=== PATIENT | male | born 1955 | race Caucasian/White ===

== ENCOUNTER 2025-03-08 14:52 | Emergency (ER) | payer OTHER, MEDICARE, SELFPAY ==
[2025-03-08 15:18] VITALS: BP 158/88
[2025-03-08] MEDS: ADACEL 0.5 ML IM (17:48)
--- NOTE | 2025-03-08 19:21 | ED.GENMED ---
History of Present Illness
General
Chief Complaint: Head Injury
Source: patient
Exam Limitations: none
Time Seen by Provider: 03/08/25 16:29
Nursing documentation reviewed up to this point in time: agreed with
History of Present Illness
History of Present Illness:
Patient is a 69-year-old male with history of hypertension, hyperlipidemia, HIV who presents to the emergency department for evaluation of head injury. Patient states he was 'chopping ice' around 3:30 PM today when he slipped and fell striking the
back of his head on a large rock. He denies any loss of consciousness. Patient noticed significant bleeding from his head immediately following fall. He reports very mild headache, mainly localized around area of laceration on posterior scalp.
He denies any nausea or episodes of vomiting since fall. No changes in vision, dizziness, or difficulties ambulating. No neck pain, numbness/tingling in lower extremities, or weakness.
Patient is not on any oral anticoagulation. He is unsure of his last Tdap vaccine.
Review of Systems
Review of Systems
Allergies reviewed?: Yes
All Other Systems: ROS reviewed and negative except as documented in HPI and ROS
Phy Exam
Physical Exam
Physical Exam:
Vitals: Hypertensive, otherwise vital signs stable. Afebrile
General: Patient appears in no distress.
Skin: Approximately 3 cm curved laceration to posterior scalp with surrounding hematoma
Head: Normocephalic, laceration to posterior scalp as above
Eyes: Sclera nonicteric. Pupils equal round and reactive to light bilaterally. EOMs intact. No nystagmus.
Throat: Protecting airway
Neck: Normal ROM, no cervical spine tenderness, no meningismus
Cardiac: Regular rate and rhythm, no murmurs.
Pulm: Normal respiratory effort. Lungs clear bilaterally
Abdomen: No abdominal tenderness.
Back: No midline spinal tenderness.
Extremities: Bilateral upper and lower extremities atraumatic and nontender full range of motion. Strength 5/
Neuro: AAOx3. CN II-XII grossly intact. No focal neurologic deficits.
Psychiatric: Normal affect.
Course
Orders/Labs/Results
Orders:
Orders
03/08/25 15:24
Cervical Spine wo Contrast CT [CT Cervical Spine W/o Iv Contr] Urgent
Comment:
Reason For Exam: head injury
Head wo Contrast CT [CT Head W/o Iv Contrast] Urgent
Comment:
Reason For Exam: head injury
03/08/25 17:32
Tetanus/Diphth/Acelpertussis [Adacel] 0.5 ml IM .ONCE ONE
Vital Signs
Initial and Last Documented VS:
Initial Vital Signs
Temp Pulse Resp BP Pulse Ox
98.4 F 75 20 158/88 97
03/08/25 15:18 03/08/25 15:18 03/08/25 15:18 03/08/25 15:18 03/08/25 15:18
Last Documented Vital Signs
Temp Pulse Resp BP Pulse Ox
98.4 F 75 20 158/88 97
03/08/25 15:18 03/08/25 15:18 03/08/25 15:18 03/08/25 15:18 03/08/25 19:21
Procedures
Laceration Closure
Posterior Scalp:
Status of Wound: clean
Size of Wound in cm: 3
Description of Wound Edges: sharp
Preparation: cleaned with saline
Anesthesia: 1% Lidocaine with epi
Revision/Debridement: routine- no revision
Wound exploration: explored to base- no FB
Type of Closure: single layer closure
Skin Closure Material: skin ash (4)
MDM/Problems Addressed
Differential Diagnosis Includes:
Not limited to: Laceration, concussion, hematoma, intracranial bleed, etc.
MDM/Problems Addressed:
69-year-old male with laceration of posterior scalp after slip and fall on ice. No LOC. No significant headache, neck pain, or pain in extremities. Vitals stable. On exam, patient appears well and in distress. He does have am approximately 2cm
curved laceration of posterior scalp. No evidence of cervical spine injury. He is alert and oriented without focal deficits.
Prior to my evaluation � CT head/cervical spine obtained with no evidence of intracranial bleeding or fracture.�
Verbal consent obtained by patient. Laceration thoroughly irrigated with normal saline, closed with 4 skin ash. Hemeostasis obtained.
Tdap updated.
Patient tolerated procedure well and appears very well. Feel stable for discharge with supportive care instructions and close outpatient follow-up. Discussed wound care instructions and staple removal in 5-7 days. Return precautions discussed.
Chronic conditions affecting care:
Hypertension, hyperlipidemia
Acute Exacerbation and/or Progression of Chronic Illness:
Acutely hypertensive
*Radiology
Radiology exam reviewed: radiology read reviewed
*Pulse Oximetry
SaO2: 97
Oxygen Mode of Delivery: Room air
Patient hypoxic: no
*EKG
Interpreted by ED Provider?: NA
*Cigarette Packer Interpretation
Rate: Cigarette Packer- N/A
*Critical Care Note
Total Time (30-74mins, 75-104mins- exclusive of procedures): Not Applicable
ED Attending Note
-
Portions of this chart may have been created with voice recognition software.� Occasional wrong word or��sound alike� substitutions may have occurred due to the inherent limitations of voice recognition software.
Discharge Plan
Departure
Patient Disposition: Home (Routine Discharge)
Date of Disposition: 03/08/25
Time of Disposition: 17:35
Patient with high blood pressure during this ER visit?: Yes
Condition: Good
Discharge Problem:
Fall, Laceration of scalp
Instructions: Head Injury in Adults (DC), Laceration Repair With [place] (DC), BLOOD PRESSURE
Referrals:
Deedee Carnye MD [Family Provider, [facility]] - Follow up in 5-7 days
Activity Restrictions/Additional Instructions:
RETURN TO THE EMERGENCY DEPARTMENT WITH ANY SEVERE HEADACHE OR NECK PAIN, INTRACTABLE VOMITING, VISUAL CHANGES, CHANGES IN MENTAL STATUS, SIGNS OF INFECTION FROM WOUND, OR ANY OTHER CONCERNS
- The imaging of your head and cervical spine showed no evidence of fracture or intracranial bleeding. The laceration of your scalp was closed with 4 ash. Please have these removed in 5-7 days with your primary care provider, urgent care, or
emergency department.
- Keep wound clean and dry. Wash gently with soap and water. Monitor closely for signs of infection.
- You can take Tylenol and/or Motrin as needed for headache or pain.
- Follow-up with primary care in 5 to 7 days for repeat evaluation and staple removal.
Monitor your symptoms closely and return to the emergency department with any acute worsening/new symptoms or any other concerns
Interventions
Interventions:
*Neglect/Abuse Screening Last Done: 03/08/25 15:18
*Risk Screen - Suicide (C-SSRS) Last Done: 03/08/25 15:18
*Nursing Disposition Last Done: 03/08/25 17:55
ED- Neurological Assessment Last Done: 03/08/25 17:55
ED-Skin Assessment Last Done: 03/08/25 17:55
Discharge Date and Time
Discharge Date/Time: 03/08/25 17:56
Print Language: NIGERIEN
== END 2025-03-08 17:56 | disposition home or self-care (01) ==
LOC: EMR 14:52
PROVIDERS: EMERGENCY PHYSICIAN Emergency Medicine; FAMILY PHYSICIAN Family Medicine
DX: S01.01XA Laceration without foreign body of scalp, initial encounter (principal); W00.0XXA Fall on same level due to ice and snow, initial encounter; W22.09XA Striking against other stationary object, initial encounter; I10 Essential (primary) hypertension; E78.5 Hyperlipidemia, unspecified; Z21 Asymptomatic human immunodeficiency virus [HIV] infection status; Z23 Encounter for immunization
CPT/HCPCS: 99284; 12002; 90471; 70450; 72125; 90715